=== PATIENT | female | born 1980 | race Caucasian/White ===

== ENCOUNTER 2023-10-08 23:33 | Emergency (ER) | payer BC, SELFPAY ==
[2023-10-08 23:40] VITALS: BP 154/92; PULSE 120; RESP 26; TEMP 36.8; O2SAT 100; BMI 30.9
--- NOTE | 2023-10-08 23:40 | ED.ALLEREA ---
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 for last 6 months starting having similar episode 45 minutes prior to arrival noticed sudden onset of facial swelling and lip swelling and difficulty in breathing took 50 mg of Benadryl and 40 mg of prednisone and took EpiPen prior to arrival feeling little better now slightly anxious no hives does feels face swollen Related Data Previous Rx's ?Medication ?Instructions ?Recorded montelukast 10 mg tablet 10 mg PO QPM #90 tabs 10/09/23 (Singulair) prednisone 20 mg tablet 40 mg (2 x 20 mg) PO DAILY #10 tabs 10/09/23 Allergies Allergy/AdvReac Type Severity Reaction Status Date / Time No Known Allergies Allergy Verified 10/08/23 23:40 Review of Systems Review of Systems: Yes all other systems are reviewed and are negative PMFSH Social History Social History Advance Directives: No Advance Directives Information Provided: No Do you have a plan to hurt others: No Plan Physical Exam ED Vital Signs: Vital Signs - 24 hr 10/08/23 23:40 10/08/23 23:47 10/08/23 23:55 Temperature 98.2 F Pulse Rate 120 H 108 H 104 H Respiratory Rate 26 H 14 16 Blood Pressure 154/92 H 150/93 H 135/83 Pulse Oximetry 100 99 98 Oxygen Delivery Method Room Air Room Air Room Air 10/09/23 01:11 Temperature 98.2 F Pulse Rate 104 H Respiratory Rate 16 Blood Pressure 135/83 Pulse Oximetry 98 Oxygen Delivery Method Room Air BMI result Body Mass Index 30.9 Appearance: Alert. Oriented X3. No acute distress. Eyes: No pallor or icterus ENT: Slight lip swelling tongue is normal uvula slight swollen no stridor Oral Mucosa moist Neck: Normal inspection. Neck supple. CVS: Normal heart rate and rhythm. Pulses normal. Respiratory: No respiratory distress. Equal air entry bilateral, no wheezing/rales/rhonchi Abdomen: Soft and nontender. Bowel sounds are present, no mass palpable, no CVA tenderness Skin: Skin warm and dry. Normal skin color. Normal skin turgor. Extremities: No lower extremity edema. No calf tenderness Neuro: Oriented X 3. Medications Administered Discontinued Medications Generic Name Dose Route Start Last Admin Trade Name Alex PRN Reason Stop Dose Admin Dexamethasone Sodium Phosphate 10 mg 10/08/23 23:39 10/08/23 23:42 Dexamethasone Sod Phosphate 10 Mg/Ml Vial IVPUSH 10/08/23 23:40 10 mg ONCE ONE Administration Diphenhydramine HCl 25 mg 10/08/23 23:39 10/08/23 23:42 Diphenhydramine Hcl 50 Mg/Ml Vial IVPUSH 10/08/23 23:40 25 mg ONCE ONE Administration Famotidine 20 mg 10/08/23 23:39 10/08/23 23:42 Famotidine/Pf 20 Mg/2 Ml Vial IVPUSH 10/08/23 23:40 20 mg ONCE ONE Administration Medical Decision Making Medical Decision Making MDM Narrative: Patient with allergic reaction to unknown agent had anaphylaxis reaction at home took EpiPen at home already on prednisone after arrival patient was getting better was given Decadron and Benadryl along with Pepcid patient felt much better at the time of discharge Discharge Plan Discharge Clinical Impression: Allergic reaction Patient Disposition: Home, Self-Care Instructions: General Allergic Reaction (ED), Allergy Testing (ED) Additional Instructions: Rest at home Start taking Singulair 10 mg daily at nighttime Prednisone 40 mg daily for 5 days Benadryl as advised Prescriptions: New prednisone 20 mg tablet 40 mg PO DAILY Qty: 10 0RF montelukast [Singulair] 10 mg tablet 10 mg PO QPM Qty: 90 0RF Interventions: ED Discharge Assessment Last Done: 10/09/23 01:11 Discharge Date/Time: 10/09/23 01:13 Print Language: British
[2023-10-08] MEDS: Famotidine/PF 20 MG/2 ML VIAL IVPUSH (23:42)
[2023-10-08] MEDS: diphenhydrAMINE HCL 50 MG/ML VIAL 25 MG IVPUSH (23:42)
[2023-10-08] MEDS: dexAMETHasone sod phosphate 10 MG/ML VIAL IVPUSH (23:42)
--- NOTE | 2023-10-08 23:42 | MHC.EDTECH ---
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
[2023-10-08 23:47] VITALS: BP 150/93; PULSE 108; RESP 14; O2SAT 99
--- NOTE | 2023-10-08 23:49 | PC.NURSE ---
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 pt verbalizes sitting at home/watching tv on the couch when she noticed facial swelling/difficulty swallowing. hx of unknown allergen reactions. pt self administered 1mg epi, 40mg prednisone, and 50mg of benadryl w/ minimal relief. upon ED arrival - facial swelling/hives on chest noted. pt still verbalizes difficulty swallowing. 20gIV placed in the left AC - medication administered per provider order. effectiveness pending. pt able to speak in full/clear sentences w/o difficulty. wob noted. respirations labored. partner bedside for support. plan of care ongoing.
[2023-10-08 23:55] VITALS: BP 135/83; PULSE 104; RESP 16; O2SAT 98
--- NOTE | 2023-10-09 00:03 | PC.NURSE ---
facial swelling/hives seem to be noticeably decreasing s/p medication administration. pt verbalizes slight relief in regards to difficulty in swallowing. pt still able to speak in full/clear sentences w/o difficulty. slight wob noted. respirations even/slightly labored. plan of care ongoing. call bridges placed within reach.
[2023-10-09 01:11] VITALS: BP 135/83; PULSE 104; RESP 16; TEMP 36.8; O2SAT 98
== END 2023-10-09 01:13 | disposition home or self-care (01) ==
PROVIDERS: Emergency Provider Internal Medicine; PCP Internal Medicine
DX: L50.0 Allergic urticaria (principal)
CPT/HCPCS: 96374; 96375; 99283; 99284; J1100; J1200